=== PATIENT | male | born 1960 | race Caucasian/White ===

== ENCOUNTER 2024-08-09 09:57 | Inpatient (IN) | payer OTHER, MEDICARE ==
[2024-08-09 10:07] VITALS: BMI 36.8
[2024-08-09 10:56] LABS: BASO % 0.7 % (0-2.0); EOS % 3.7 % (0-4.5); HEMATOCRIT 35.6 % (35.4-49); HEMOGLOBIN 11.1 GM/dL (11.7-16.9); LYMPH % 17.7 % (8-40); MCH 27.2 pg (25.7-33.7); MCHC 31.3 g/dl (32.0-35.9); MEAN CELL VOLUME 86.9 fl (80-96); MEAN PLT VOLUME 7.6 fl (7.5-11.1); MONO % 6.9 % (3.8-10.2); PLATELET COUNT 286 10^3/uL (134-434); RBC 4.09 M/mm3 (4.00-5.60); RDW 14.3 % (11.9-15.9); WHITE BLOOD COUNT 11.9 K/mm3 (4.0-10.0)
[2024-08-09 10:58] LABS: VENOUS BASE EXCESS -7.1 mmol/L (-2-2); VENOUS O2 SATURATION 54.2 % (70-80); VENOUS PCO2 45.7 mmHg (38-52); VENOUS PH 7.256 (7.310-7.410)
[2024-08-09 11:04] LABS: INR 0.96 (0.83-1.09); PROTHROMBIN TIME (PATIENT) 11.1 SEC (9.7-13.0)
[2024-08-09 11:06] LABS: ACTIVATED PTT 34.1 SECONDS (25.2-36.5)
[2024-08-09 11:38] LABS: CHLORIDE 111 mmol/L (98-107); POTASSIUM 4.4 mmol/L (3.5-5.1); SODIUM 145 mmol/L (136-145)
[2024-08-09 11:42] LABS: ALBUMIN 3.7 g/dl (3.4-5.0); ANION GAP 13 mmol/L (4-13); BLOOD UREA NITROGEN 81.5 mg/dL (7-18); CALCIUM 8.9 mg/dL (8.5-10.1); CO2 21 mmol/L (21-32)
[2024-08-09 11:45] LABS: PHOSPHOROUS 6.5 mg/dL (2.5-4.9); SGOT/AST 7 U/L (15-37); SGPT/ALT 23 U/L (13-61)
[2024-08-09 11:47] LABS: BILIRUBIN,TOTAL 0.5 mg/dL (0.2-1); TOT PROT 7.2 g/dl (6.4-8.2)
[2024-08-09 11:48] LABS: ALK PHOS 101 U/L (45-117)
[2024-08-09 12:02] LABS: CREATININE 9.7 mg/dL (0.55-1.3); GLUCOSE,RANDOM 49 mg/dL (74-106)
[2024-08-09] MEDS ORDERED: DEXTROSE 50%-WATER 25 GM/50 ML DISP.SYRIN ONE ×2 (12:26→16:44)
[2024-08-09] MEDS: DEXTROSE 50%-WATER - 25 GM/50 ML VIAL IVPUSH ONE (12:31)
[2024-08-09] MEDS ORDERED: SODIUM CHLORIDE 250 ML IV PRN ×2 (12:51→16:09)
[2024-08-09] MEDS ORDERED: LIDOCAINE HCL 1%, 10 MG/ML (20ML VIAL) ONE (13:30)
[2024-08-09] MEDS: LIDOCAINE HCL 1%, 10 MG/ML (20ML VIAL) INF ONE ×2 (14:02→15:34)
[2024-08-09] MEDS ORDERED: ONDANSETRON 4 MG/2 ML VIAL IVPUSH PRN ×2 (14:21→16:09)
[2024-08-09] MEDS ORDERED: MIDAZOLAM HCL 2 MG/2 ML SINGLE DOSE VIAL ONE (15:14)
[2024-08-09] MEDS ORDERED: PROPOFOL 20 ML ONE (15:14)
[2024-08-09] MEDS ORDERED: ceFAZolin SODIUM 1 GM VIAL ONE (15:20)
[2024-08-09] MEDS ORDERED: ACETAMINOPHEN WITH CODEINE 300MG/30MG TABLET PO PRN (16:09)
[2024-08-09] MEDS: DEXTROSE 50%-WATER 25 GM/50 ML DISP.SYRIN IVPUSH ONE (16:51)
[2024-08-09] MEDS ORDERED: CALCIUM ACETATE 667 MG CAPSULE (FP) PO SCH ×2 (17:30)
[2024-08-09 19:18] VITALS: RESP 18; TEMP 98.7
[2024-08-09 20:10] VITALS: PULSE 92
[2024-08-09 20:13] VITALS: BP 188/110
[2024-08-09] MEDS ORDERED: EPLERENONE 25 MG TABLET PO SCH ×2 (22:00)
[2024-08-09] MEDS ORDERED: ATORVASTATIN CA 20 MG TABLET (FP) PO SCH ×2 (22:00)
[2024-08-10] MEDS ORDERED: LEVOTHYROXINE 100 MCG, LEVOTHYROXINE 75 MCG PO SCH ×2 (07:00)
[2024-08-10] MEDS ORDERED: amLODIPine BESYLATE 10 MG TABLET (FP) PO SCH ×2 (10:00)
[2024-08-10] MEDS ORDERED: HEPARIN NA (PORCINE) 5,000 UNITS/ML 1ML VIAL SQ SCH ×2 (10:00)
[2024-08-10] MEDS ORDERED: LEVOTHYROXINE SODIUM 175 MCG PO SCH (10:00)
== END 2024-08-09 20:40 | disposition left against medical advice (07) | DRG 314 ==
LOC: JER 09:57 → JERBED 12:32 → OBSVTOIN 12:35 → J5S 20:07
PROVIDERS: ADMIT Internal Medicine; ATTEND Internal Medicine
PROC: 02HV33Z Insertion of Infusion Device into Superior Vena Cava, Percutaneous Approach (ICD-10-PCS; 2024-08-09)
PROC: 0JH63XZ Insertion of Tunneled Vascular Access Device into Chest Subcutaneous Tissue and Fascia, Percutaneous Approach (ICD-10-PCS; 2024-08-09)
PROC: 5A1D70Z Performance of Urinary Filtration, Intermittent, Less than 6 Hours Per Day (ICD-10-PCS; 2024-08-09)
PROC: 05HN33Z Insertion of Infusion Device into Left Internal Jugular Vein, Percutaneous Approach (ICD-10-PCS; principal; 2024-08-09 14:30)
DX: T82.868A Thrombosis due to vascular prosthetic devices, implants and grafts, initial encounter (principal); N18.6 End stage renal disease; I12.0 Hypertensive chronic kidney disease with stage 5 chronic kidney disease or end stage renal disease; E03.9 Hypothyroidism, unspecified; E11.22 Type 2 diabetes mellitus with diabetic chronic kidney disease; E11.649 Type 2 diabetes mellitus with hypoglycemia without coma; Z99.2 Dependence on renal dialysis; E78.5 Hyperlipidemia, unspecified; E78.00 Pure hypercholesterolemia, unspecified; Y83.9 Surgical procedure, unspecified as the cause of abnormal reaction of the patient, or of later complication, without mention of misadventure at the time of the procedure
CPT/HCPCS: 36415; 71045-TC-FY; 76000-TC-FY; 80053; 82803; 82962; 83735; 84100; 85025; 85610; 85730; 86704; 86705; 86803; 86850; 86900; 86901; 87340; 87517; 93005; 93010; 94760; 99285-25; C1750; G0378; J1644